=== PATIENT | male | born 1960 | race Caucasian/White ===

== ENCOUNTER 2016-03-13 12:48 | Emergency (ER) | payer OTHER ==
[~2016-03-13] VITALS: Ht 165.1 cm; Wt 90.0 kg
[2016-03-13] MEDS ORDERED: FLEXERIL10 MG PO (16:18)
[2016-03-13 16:35] VITALS: BP 145/67
== END 2016-03-13 16:35 | disposition home or self-care (01) ==
LOC: EME 12:48
DX: S09.90XA Unspecified injury of head, initial encounter (principal); S16.1XXA Strain of muscle, fascia and tendon at neck level, initial encounter; W22.09XA Striking against other stationary object, initial encounter; Z88.2 Allergy status to sulfonamides
CPT/HCPCS: 70450; 72125; 99281; 99283

== ENCOUNTER 2016-06-18 10:00 | Emergency (ER) | payer OTHER ==
[~2016-06-18] VITALS: Ht 175.3 cm; Wt 88.1 kg
[~2016-06-18 10:00] MED LIST: FLEXERIL10 MG PO
[2016-06-18 12:39] LABS: EOSINOPHIL (%) 2.1 % (0-5); EOSINOPHIL COUNT 0.2 K/uL (0-0.3); HEMATOCRIT 45.3 % (38.0-50.0); IMMATURE GRANULOCYTE (%) 0.3 % (0.0-0.7); INSTRUMENT ABS NEUTROPHIL CT 4.5 K/uL; LYMPHOCYTE COUNT 2.1 K/uL (1.0-2.8); MCHC 33.3 G/DL (30.0-36.0); MCV 90.1 FL (86-99); MEAN PLAT.VOLUME 9.1 uM^3 (9.0-12.4); MONOCYTE (%) 9.1 % (3-12); MONOCYTE COUNT 0.7 K/uL (0-0.8); NEUTROPHIL (%) 60.2 % (45-76); NEUTROPHIL COUNT 4.5 K/uL (1.8-6.4); PLATELET COUNT 155 K/uL (156-360); RBC DIS.WIDTH-CV 12.4 % (11.8-14.6); RBC DIS.WIDTH-SD 41.1 % (39-53); RED BLOOD COUNT 5.03 M/uL (4.00-5.50); WHITE BLOOD COUNT 7.5 K/uL (4.1-10.2)
[2016-06-18 12:54] LABS: CHLORIDE 109 mEq/L (99-109); POTASSIUM 4.2 mEq/L (3.7-5.4); SODIUM 140 mEq/L (136-147)
[2016-06-18 12:57] LABS: GLUCOSE 106 mg/dL (70-99); INTER. NORMALIZED RATIO 1.1; PROTHROMBIN TIME 10.9 (9.2-11.2)
[2016-06-18 12:59] LABS: ANION GAP 9 MEQ/L (2-14); GFR ESTIMATE (CALCULATED) > 59 mL/min/
[2016-06-18 13:00] LABS: UREA NITROGEN (BUN) 15 mg/dL (9-23)
[2016-06-18] MEDS ORDERED: XARELTO15 MG PO (14:11)
[2016-06-18 15:31] VITALS: BP 137/84
== END 2016-06-18 15:55 | disposition home or self-care (01) ==
LOC: EME 10:00
PROVIDERS: Emergency Medicine
DX: I82.412 Acute embolism and thrombosis of left femoral vein (principal); I82.432 Acute embolism and thrombosis of left popliteal vein; I82.4Z2 Acute embolism and thrombosis of unspecified deep veins of left distal lower extremity; Z96.643 Presence of artificial hip joint, bilateral; G43.909 Migraine, unspecified, not intractable, without status migrainosus
CPT/HCPCS: 80048; 85025; 85610; 93971; 99281; 99284

== ENCOUNTER 2016-06-20 11:53 | Inpatient (IN) | payer OTHER ==
[~2016-06-20] VITALS: Ht 175.3 cm; Wt 88.6 kg
[~2016-06-20 11:53] MED LIST changes: +XARELTO15 MG PO
[2016-06-20 12:48] LABS: HEMATOCRIT 48.2 % (38.0-50.0); MCH 30.1 PG (29.0-34.0); MCHC 33.4 G/DL (30.0-36.0); MCV 90.1 FL (86-99); MEAN PLAT.VOLUME 8.8 uM^3 (9.0-12.4); PLATELET COUNT 190 K/uL (156-360); RBC DIS.WIDTH-CV 12.5 % (11.8-14.6); RBC DIS.WIDTH-SD 41.3 % (39-53); RED BLOOD COUNT 5.35 M/uL (4.00-5.50)
[2016-06-20 12:59] LABS: CHLORIDE 108 mEq/L (99-109); POTASSIUM 4.7 mEq/L (3.7-5.4); SODIUM 138 mEq/L (136-147)
[2016-06-20 13:01] LABS: GLUCOSE 101 mg/dL (70-99)
[2016-06-20 13:02] LABS: ANION GAP 8 MEQ/L (2-14)
[2016-06-20 13:05] LABS: GFR ESTIMATE (CALCULATED) > 59 mL/min/
[2016-06-20 13:06] LABS: UREA NITROGEN (BUN) 15 mg/dL (9-23)
[2016-06-20 13:09] LABS: TROP-I INTERPRETATION NEGATIVE; TROPONIN-I 0.01 ng/mL (0.0-0.30)
[2016-06-20 14:58] LABS: INTER. NORMALIZED RATIO 1.3; PROTHROMBIN TIME 13.1 (9.2-11.2); PTT 36.9 (25-32)
[2016-06-20] MEDS ORDERED: CYMBALTA60 MG PO (15:14)
[2016-06-20] MEDS ORDERED: TOPIRAMATE50 MG PO (15:14)
[2016-06-20] MEDS ORDERED: TERAZOSIN HCL2 MG PO (15:14)
[2016-06-20] MEDS ORDERED: MEN'S ONE DAIL1 EACH PO (15:14)
[2016-06-20] MEDS ORDERED: MAGNESIUM400 M1 PO (15:15)
[2016-06-20] MEDS ORDERED: [UNRECOGNIZED DRUG - OTHER] PO (15:15)
[2016-06-20 22:42] VITALS: BP 107/68
[2016-06-21 05:38] LABS: HEMATOCRIT 44.2 % (38.0-50.0); MCH 30.1 PG (29.0-34.0); MCHC 33.5 G/DL (30.0-36.0); MCV 89.8 FL (86-99); MEAN PLAT.VOLUME 9.1 uM^3 (9.0-12.4); PLATELET COUNT 199 K/uL (156-360); RBC DIS.WIDTH-CV 12.5 % (11.8-14.6); RBC DIS.WIDTH-SD 41.1 % (39-53); RED BLOOD COUNT 4.92 M/uL (4.00-5.50); WHITE BLOOD COUNT 6.6 K/uL (4.1-10.2)
[2016-06-21 05:52] LABS: INTER. NORMALIZED RATIO 1.1; PROTHROMBIN TIME 10.8 (9.2-11.2)
[2016-06-21 06:02] LABS: ANION GAP 9 MEQ/L (2-14); CHLORIDE 108 MEQ/L (99-109); GFR ESTIMATE (CALCULATED) > 59 mL/min/; GLUCOSE 107 mg/dL (70-99); POTASSIUM 3.9 MEQ/L (3.7-5.4); SAMPLE HEMOLYSIS CHECK 0; SAMPLE ICTERIC CHECK 0; SAMPLE LIPEMIA CHECK 0; SODIUM 141 MEQ/L (136-147); UREA NITROGEN (BUN) 16 mg/dL (9-23)
[2016-06-21 06:48] VITALS: BP 106/61
[2016-06-21 15:50] VITALS: BP 118/60
[2016-06-21 19:36] VITALS: BP 121/67
[2016-06-21 23:57] VITALS: BP 127/81
[2016-06-22 03:50] VITALS: BP 124/68
[2016-06-22 06:59] LABS: EOSINOPHIL (%) 2.6 % (0-5); EOSINOPHIL COUNT 0.2 K/uL (0-0.3); HEMATOCRIT 44.1 % (38.0-50.0); IMMATURE GRANULOCYTE (%) 0.5 % (0.0-0.7); INSTRUMENT ABS NEUTROPHIL CT 3.3 K/uL; LYMPHOCYTE COUNT 2.5 K/uL (1.0-2.8); MCH 30.4 PG (29.0-34.0); MCHC 33.3 G/DL (30.0-36.0); MCV 91.1 FL (86-99); MEAN PLAT.VOLUME 9.4 uM^3 (9.0-12.4); MONOCYTE (%) 8.4 % (3-12); MONOCYTE COUNT 0.6 K/uL (0-0.8); NEUTROPHIL (%) 49.9 % (45-76); NEUTROPHIL COUNT 3.3 K/uL (1.8-6.4); PLATELET COUNT 215 K/uL (156-360); RBC DIS.WIDTH-CV 12.5 % (11.8-14.6); RBC DIS.WIDTH-SD 41.7 % (39-53); RED BLOOD COUNT 4.84 M/uL (4.00-5.50); WHITE BLOOD COUNT 6.6 K/uL (4.1-10.2)
[2016-06-22 07:10] LABS: INTER. NORMALIZED RATIO 1.1; PROTHROMBIN TIME 11.1 (9.2-11.2)
[2016-06-22 07:15] VITALS: BP 114/65
[2016-06-22 07:20] LABS: ALKALINE PHOSPHATASE 95 IU/L (3-129); ANION GAP 8 MEQ/L (2-14); CHLORIDE 108 MEQ/L (99-109); GFR ESTIMATE (CALCULATED) > 59 mL/min/; GLUCOSE 93 mg/dL (70-99); POTASSIUM 4.4 MEQ/L (3.7-5.4); SAMPLE HEMOLYSIS CHECK 0; SAMPLE ICTERIC CHECK 0; SAMPLE LIPEMIA CHECK 0; SODIUM 142 MEQ/L (136-147); TOTAL BILIRUBIN 0.9 MG/DL (0.0-1.0); UREA NITROGEN (BUN) 14 mg/dL (9-23)
[2016-06-22] MEDS ORDERED: LOVENOX150 MG/1 M SC (07:29)
[2016-06-22] MEDS ORDERED: COUMADIN1 MG PO ×2 (07:29)
== END 2016-06-22 12:00 | disposition home or self-care (01) | DRG 176 ==
LOC: EME 11:53 → RME 11:53 → 5EAST 14:26 → EDOF 14:26 → 5EAST 19:50
PROVIDERS: Emergency Medicine; Internal Medicine Hematology & Oncology; Nurse Practitioner Adult Health; Pediatrics; Physician Assistant
DX: I26.99 Other pulmonary embolism without acute cor pulmonale (principal); I82.492 Acute embolism and thrombosis of other specified deep vein of left lower extremity; R07.89 Other chest pain; G43.909 Migraine, unspecified, not intractable, without status migrainosus; F41.9 Anxiety disorder, unspecified; F32.9 Major depressive disorder, single episode, unspecified; Z96.649 Presence of unspecified artificial hip joint; N40.0 Benign prostatic hyperplasia without lower urinary tract symptoms; M19.90 Unspecified osteoarthritis, unspecified site; K21.9 Gastro-esophageal reflux disease without esophagitis; Z79.01 Long term (current) use of anticoagulants; Z87.442 Personal history of urinary calculi; Z72.0 Tobacco use
CPT/HCPCS: 71020; 71275; 80048; 80053; 80069; 81240 90; 81241 90; 84484; 85025; 85027; 85610; 85730; 93005; 93971; 99281; 99284; 99285; J1650